=== PATIENT | female | born 1965 | race American Indian/Alaskan Native ===

== ENCOUNTER 2019-09-16 09:27 | Outpatient (CLI) | payer BC ==
--- NOTE | 2019-09-16 14:14 | Magnetic Resonance Report ---
BILATERAL BREAST MR WITHOUT AND WITH GADOLINIUM INDICATION: Newly diagnosed left breast cancer. She had a biopsy at [facility]. Pathology:Invasive car cinoma of no special type (invasive ductal carcinoma, not otherwise specified) Histologic Grade ([place] Histologic Score) Glandular(Acinar)/Tubular Differentiation: score 2 Nuclear Pleomorphism: score 3 Mitotic Rate: score 3 Overall Grade: grade 3 Ductal Carcinoma in Situ (DCIS): present Architectural Patterns: comedo, cribriform, solid Nuclear Grade: grade III (high) Necrosis: present, central (expansive comedo necrosis) Lymphovascular Invasion: present Microcalcifications: present Biomarker studies: ER: Negative VT: Negative HER2 (FISH): Negative Ki-67: 70% COMPARISONS: No comparison imaging. TECHNIQUE: Axial 1.0 mm T1 without, axial high-resolution 2.0 mm T2 and axial 1.0 mm dynamic vibrant high-resolution postcontrast T1 fat saturation sequences on a 1.5 [place] magnet. The examination was p erformed with an 8-channel dedicated [place] breast coil. Post-processing with CAD and subtraction was performed on an [employer] workstation. 18.0 cc of MultiHance was injected without incident for the c ontrast portion of the exam. Consent was obtained prior to the administration of the contrast. FINDINGS: RIGHT BREAST: Moderate background parenchymal enhancement. No mass or suspicious enhancement of the r ight breast. No suspicious right axillary or right internal mammary lymph nodes. LEFT BREAST: Moderate background parenchymal enhancement. Lesion 1 is an irregular enhancing mass wit h a biopsy clip at 12:00 7.6 cm from the nipple measuring 3.2 x 3.1 x 2.1 cm. It demonstrates heterog eneous enhancement with mixed kinetics, rapid initial enhancement, 181% peak enhancement and 7% type III washout. There is extensive nonmass enhancement at 12:00 in association with this mass and this a wilma of nonmass enhancement measures approximately 5 x 5 cm. Highly suspicious nonmass enhancement ext ends inferiorly toward the nipple to what is labeled as lesion 2. Lesion 2 is an irregular enhancing mass measuring 9.5 x 6.1 x 3.0 mm. It demonstrates heterogeneous enhancement with mixed kinetics, rap id initial enhancement, 109% peak enhancement and a predominant type II plateau enhancement. A third area of highly suspicious segmental nonmass enhancement in association with 2 suspicious masses are l ocated at 9:00 approximately 10 cm from the nipple. At least 2 masses are identified within this segm ental nonmass enhancement and the dominant mass measures 8 mm. 2. Suspicious left axillary lymph nodes measure 2.3 and 2.4 cm each. The cortex measures 6 mm maximum on both of these lymph nodes. IMPRESSION: 1. Multicentric left breast cancer with a dominant 3.2 cm mass at 12:00 approximately 6 7.5 cm from t he nipple. 2. Left axillary lymph node metastasis with 2 suspicious lymph nodes. 3. Negative right breast. BI-RADS Category 6: Known Cancer Signer Name: Tae Carrillo MD Signed: 09/16/2019 2:10 PM Workstation Name: [id number]
== END 2019-09-16 09:28 | disposition home or self-care (01) ==
LOC: SPVIMAG 09:27
PROVIDERS: ATTEND Surgery
DX: C50.012 Malignant neoplasm of nipple and areola, left female breast (principal)
CPT/HCPCS: A9577; C8908; 77049

== ENCOUNTER 2019-09-24 08:13 | Outpatient (CLI) | payer BC | END 2019-09-24 08:14 | disposition home or self-care (01) | LOC: LABHHL 08:13 | PROVIDERS: ATTEND Surgery | DX: C77.3 Secondary and unspecified malignant neoplasm of axilla and upper limb lymph nodes (principal); D36.0 Benign neoplasm of lymph nodes; C50.919 Malignant neoplasm of unspecified site of unspecified female breast | CPT/HCPCS: 88305 ==